=== PATIENT | female | born 1950 | race Caucasian/White ===

== ENCOUNTER 2019-04-25 06:26 | Day surgery (SDC) | payer BC ==
[2019-04-25] MEDS ORDERED: Lactated Ringers 1,000 ML IV SCH (06:30)
[2019-04-25] MEDS ORDERED: Lactated Ringers 1,000 ML IV ONE (06:39)
[2019-04-25] MEDS ORDERED: DIPRIVAN 200 MG/20 ML IV ONE (07:54)
[2019-04-25 09:08] VITALS: O2SAT 99
--- NOTE | 2019-04-25 09:21 | OP ---
SURGERY DATE/TIME: 04/25/2019 0806 PREOPERATIVE DIAGNOSIS: History of colon polyp. POSTOPERATIVE DIAGNOSIS: Moderate to severe sigmoid diverticulosis otherwise normal colon. PROCEDURE: Colonoscopy. SURGEON: Dr. Charles. ANESTHESIA: MAC. Medications given by anesthesia department. HISTORY: The patient is a 68 year-old white female who reports had a polyp removed about three to four years ago and the patient was felt the need to have endoscopic evaluation. She was reappraised of the risks of the procedure including the risk of perforation, phlebitis, untoward reaction to medication, bleeding and missed lesions. The patient verbalized her understanding and desired to have the procedure performed. DESCRIPTION OF PROCEDURE: The patient was given the medications by the anesthesia department. She had continuous pulse oximetry, ECG monitoring, intermittent blood pressure monitoring and tidal CO2 monitoring during the examination. She was placed in the left lateral decubitus position. A digital rectal examination was performed and revealed normal anal sphincter tone and no masses. The flexible Olympus pediatric colonoscope was used to intubate the rectum. A view of the colon was developed sequentially to the cecum. Upon insertion and withdrawal including a retroflex view in the rectum was noted moderate to severe sigmoid diverticulosis otherwise no mucosal lesions were encountered. The scope was removed from the patient who tolerated the procedure well and was sent back to OP recovery in good condition. The prep was noted to be good.
[2019-04-25 09:37] VITALS: BP 117/69; PULSE 64
== END 2019-04-25 09:45 | disposition home or self-care (01) ==
LOC: SDC 06:26
PROVIDERS: ATTEND Family Medicine
DX: Z09 Encounter for follow-up examination after completed treatment for conditions other than malignant neoplasm (principal); K57.30 Diverticulosis of large intestine without perforation or abscess without bleeding; Z86.010 Personal history of colon polyps
CPT/HCPCS: 99100; J2704